=== PATIENT | female | born 1990 | race Caucasian/White ===

== ENCOUNTER 2017-06-02 16:40 | Emergency (ER) | payer OTHER ==
[2017-06-02 16:48] VITALS: BP 134/90; PULSE 99; TEMP 97.4; BMI 25.4
--- NOTE | 2017-06-02 16:50 | PDOC ---
Rapid Medical Evaluation Chief Complaint: Pain Time Seen by Provider: 06/02/17 16:46 Medical Evaluation: Allergies Allergy/AdvReac Type Severity Reaction Status Date / Time No Known Allergies Allergy Verified 09/17/16 09:33 06/02/17 17:00 I have performed a brief in-person evaluation of this patient. The patient presents with a chief complaint of: leg pain, ?dyspnea, hx lupus Pertinent physical exam findings: leg pain, no gross swelling. ambulatory. appears well, no obvious dyspnea I have ordered the following: cbc, cmp, coags, us right leg, The patient will proceed to the ED for further evaluation. Discharge Disposition - Diagnosis Leg pain Qualifiers: Laterality: right Qualified Code(s): M79.604 - Pain in right leg - Referrals - Patient Instructions - Post Discharge Activity
[2017-06-02 17:24] LABS: BASOPHIL 0.6 % (0-2.0); EOSINOPHIL 1.2 % (0-4.5); MCH 30.9 pg (25.7-33.7); MCHC 34.6 g/dl (32.0-36.0); MEAN CELL VOLUME 89.3 fl (80-96); MEAN PLT VOLUME 10.2 fl (7.5-11.1); NEUTROPHILS 67.8 % (42.8-82.8); PLATELET COUNT 172 K/MM3 (134-434); RDW 12.7 % (11.6-15.6)
--- NOTE | 2017-06-02 17:42 | PDOC ---
History of Present Illness - General Chief Complaint: Pain Stated Complaint: LEG PAIN Time Seen by Provider: 06/02/17 16:46 History Source: Patient - History of Present Illness Occurred: reports: other Lower Extremity Pain Location: right: knee Past History - Past Medical History Allergies/Adverse Reactions: Allergies Allergy/AdvReac Type Severity Reaction Status Date / Time No Known Allergies Allergy Verified 06/02/17 16:48 Home Medications: Ambulatory Orders NK [No Known Home Medication] 06/02/17 Asthma: Yes (last attack 2 yrs ago) Cancer: No Cardiac Disorders: No COPD: No Diabetes: No HTN: No Seizures: No Thyroid Disease: No Other medical history: lupus - Reproductive History (#): 4 Para: 3 Therapeutic (s) & number: No Spontaneous : 0 - Suicide/Smoking/Psychosocial Hx Smoking Status: No Smoking History: Never smoked Have you smoked in the past 12 months: No Number of Cigarettes Smoked Daily: 0 Hx Alcohol Use: No Drug/Substance Use Hx: No Hx Substance Use Treatment: No Review of Systems - Review of Systems Constitutional: No: Chills, Fever Cardiac (ROS): No: Chest Pain, Palpitations Musculoskeletal: Yes: Joint Pain. No: Joint Swelling *Physical Exam - Vital Signs Last Vital Signs Temp Pulse Resp BP Pulse Ox 97.4 F L 99 H 18 134/90 99 06/02/17 16:44 06/02/17 16:44 06/02/17 16:44 06/02/17 16:44 06/02/17 16:44 - Physical Exam General Appearance: Yes: Appropriately Dressed. No: Apparent Distress HEENT: positive: Normal Voice Neck: positive: Supple Respiratory/Chest: positive: Lungs Clear, Normal Breath Sounds. negative: Respiratory Distress Cardiovascular: positive: Regular Rate, S1, S2 Extremity: positive: Normal Inspection. negative: Tender, Swelling Integumentary: positive: Dry, Warm Neurologic: positive: Fully Oriented, Alert, Normal Mood/Affect ED Treatment Course - LABORATORY CBC & Chemistry Diagram: 06/02/17 17:30 06/02/17 17:30 - ADDITIONAL ORDERS Additional order review: Laboratory Results 06/02/17 17:30 Urine HCG, Qual Negative 06/02/17 17:30 RBC 4.90 D MCV 89.3 MCHC 34.6 RDW 12.7 D MPV 10.2 Neutrophils % 67.8 Lymphocytes % 24.1 D Monocytes % 6.3 Eosinophils % 1.2 D Basophils % 0.6 Medical Decision Making - Medical Decision Making 06/02/17 17:41 27 yo F, h/o lupus, here w/ R knee pain x 1 week. States pain radiates to leg when she walks. No calf pain, cp, sob or palpitations. No trauma. Has not taken anything for pain. Pt well tatyana w/ unremarkable exam. M/l MSK. Labs and US sent from triage by [facility] provider and all negative. Pt declines pain meds in ED. Dc w / OTC meds and PMD f/u as needed *DC/Admit/Observation/Transfer Diagnosis at time of Disposition: Knee pain, right Qualifiers: Chronicity: acute Qualified Code(s): M25.561 - Pain in right knee - Discharge Dispostion Disposition: HOME Condition at time of disposition: Good - Referrals Referrals: Linda Sánchez MD [Primary Care Provider] - - Patient Instructions Printed Discharge Instructions: DI for Knee Pain Additional Instructions: The cause of your pain is most likely muscular. Take motrin as needed and follow up with your PMD - Post Discharge Activity
[2017-06-02] MEDS ORDERED: IBUPROFEN 400 MG TABLET (FP) PO ONE (17:43)
[2017-06-02 17:44] LABS: ALBUMIN 4.4 g/dl (3.4-5.0); ALK PHOS 81 U/L (45-117); ANION GAP 7 (8-16); BILIRUBIN,TOTAL 0.3 mg/dL (0.2-1.0); CALCIUM 8.6 mg/dL (8.5-10.1); CO2 26 mmol/L (21-32); CREATININE 0.9 mg/dL (0.55-1.02); GLUCOSE,RANDOM 79 mg/dL (74-106); SGOT/AST 10 U/L (15-37); SGPT/ALT 31 U/L (12-78)
--- NOTE | 2017-06-02 18:17 | PDOC ---
*Physical Exam - Vital Signs Last Vital Signs Temp Pulse Resp BP Pulse Ox 97.4 F L 99 H 18 134/90 99 06/02/17 16:44 06/02/17 16:44 06/02/17 16:44 06/02/17 16:44 06/02/17 16:44 ED Treatment Course - LABORATORY CBC & Chemistry Diagram: 06/02/17 17:30 06/02/17 17:30 - ADDITIONAL ORDERS Additional order review: Laboratory Results 06/02/17 06/02/17 06/02/17 17:30 17:30 17:30 Sodium 140 Potassium 3.8 Chloride 107 Carbon Dioxide 26 Anion Gap 7 L BUN 10 D Creatinine 0.9 D Creat Clearance w eGFR > 60 Random Glucose 79 Calcium 8.6 Total Bilirubin 0.3 D AST 10 L ALT 31 D Alkaline Phosphatase 81 Total Protein 8.0 D Albumin 4.4 D Serum , Qual Negative Urine HCG, Qual Negative 06/02/17 17:30 RBC 4.90 D MCV 89.3 MCHC 34.6 RDW 12.7 D MPV 10.2 Neutrophils % 67.8 Lymphocytes % 24.1 D Monocytes % 6.3 Eosinophils % 1.2 D Basophils % 0.6 *DC/Admit/Observation/Transfer Diagnosis at time of Disposition: Knee pain, right Qualifiers: Chronicity: acute Qualified Code(s): M25.561 - Pain in right knee - Discharge Dispostion Disposition: HOME Condition at time of disposition: Good - Referrals Referrals: Linda Sánchez MD [Primary Care Provider] - - Patient Instructions Printed Discharge Instructions: DI for Knee Pain Additional Instructions: The cause of your pain is most likely muscular. Take motrin as needed and follow up with your PMD - Post Discharge Activity Forms/Work/School Notes: Back to Work
[2017-06-02 18:56] LABS: INR 1.01 (0.82-1.09); PROTHROMBIN TIME (PATIENT) 11.4 SEC (9.98-11.88)
[2017-06-02 18:59] LABS: ACTIVATED PTT 29.1 SECONDS (26.9-34.4)
== END 2017-06-02 18:45 | disposition home or self-care (01) ==
LOC: JER 16:40
DX: M79.604 Pain in right leg (principal); J45.909 Unspecified asthma, uncomplicated; M32.9 Systemic lupus erythematosus, unspecified
CPT/HCPCS: 36415; 80053; 84703; 85025; 85610; 85730; 93971-TC; 99283-25

== ENCOUNTER 2021-08-21 19:22 | Emergency (ER) | payer OTHER ==
[2021-08-21 19:38] VITALS: TEMP 98.8; BMI 27.5
[2021-08-21] MEDS ORDERED: METOCLOPRAMIDE HCL INJECTION 10 MG/2 ML VIAL IVPB ONE (20:29)
[2021-08-21] MEDS ORDERED: ACETAMINOPHEN 1000 MG/100 ML BAG IVPB ONE (20:29)
[2021-08-21] MEDS ORDERED: SODIUM CHLORIDE 1,000 ML IV STA (20:29)
[2021-08-21] MEDS ORDERED: METOCLOPRAMIDE HCL INJECTION 10 MG/2 ML VIAL ONE (20:42)
[2021-08-21] MEDS ORDERED: ACETAMINOPHEN INJECTION 100 ML IVPB ONE (20:42)
[2021-08-21 21:21] LABS: BASO % 0.5 % (0-2.0); EOS % 0.9 % (0-4.5); HEMATOCRIT 36.1 % (32.4-45.2); HEMOGLOBIN 12.3 GM/dL (10.7-15.3); LYMPH % 16.6 % (8-40); MCH 30.3 pg (25.7-33.7); MCHC 34.2 g/dl (32.0-36.0); MEAN CELL VOLUME 88.6 fl (80-96); MEAN PLT VOLUME 9.7 fl (7.5-11.1); MONO % 6.5 % (3.8-10.2); NEUT % 75.5 % (42.8-82.8); PLATELET COUNT 161 10^3/uL (134-434); RBC 4.07 M/mm3 (3.60-5.2); RDW 12.9 % (11.6-15.6); WHITE BLOOD COUNT 7.3 K/mm3 (4.0-10.0)
[2021-08-21 21:42] LABS: ALBUMIN 3.1 g/dl (3.4-5.0); CALCIUM 8.8 mg/dL (8.5-10.1)
[2021-08-21 21:43] LABS: BLOOD UREA NITROGEN 8.5 mg/dL (7-18)
[2021-08-21 21:45] LABS: CREATININE 0.6 mg/dL (0.55-1.3)
[2021-08-21 21:47] LABS: BILIRUBIN,TOTAL 0.2 mg/dL (0.2-1); TOT PROT 6.4 g/dl (6.4-8.2)
[2021-08-21 22:35] LABS: URINE APPEARANCE CLOUDY; URINE BILIRUBIN NEGATIVE (NEGATIVE); URINE COLOR YELLOW; URINE GLUCOSE (UA) NEGATIVE (NEGATIVE); URINE KETONE TRACE (NEGATIVE); URINE LEUK ESTERASE NEGATIVE (NEGATIVE); URINE NITRITE NEGATIVE (NEGATIVE); URINE PROTEIN NEGATIVE (NEGATIVE)
[2021-08-22 00:42] VITALS: BP 112/69; PULSE 90
== END 2021-08-22 01:07 | disposition home or self-care (01) ==
LOC: JER 19:22
PROC: 3E033NZ Introduction of Analgesics, Hypnotics, Sedatives into Peripheral Vein, Percutaneous Approach (ICD-10-PCS; principal; 2021-08-21)
PROC: 3E033GC Introduction of Other Therapeutic Substance into Peripheral Vein, Percutaneous Approach (ICD-10-PCS; 2021-08-21)
PROC: 3E0337Z Introduction of Electrolytic and Water Balance Substance into Peripheral Vein, Percutaneous Approach (ICD-10-PCS; 2021-08-21)
DX: O26.891 Other specified pregnancy related conditions, first trimester (principal); R10.9 Unspecified abdominal pain; Z3A.11 11 weeks gestation of pregnancy
CPT/HCPCS: 36415; 76775-TC; 76801-TC; 76856-TC; 80053; 81003; 84702; 85025; 87086; 96365; 96374; 96375; 99284-25; J0131

== ENCOUNTER 2022-03-07 11:45 | Inpatient (IN) | payer OTHER ==
[2022-03-07] MEDS ORDERED: DINOPROSTONE 10 MG VAGINAL SUPPOSITORY VG ONE (12:55)
[2022-03-07] MEDS: ELECTROLYTE-148 SOLN 1,000 ML IV SCH (13:00)
[2022-03-07 13:23] VITALS: BMI 34.0
[2022-03-07] MEDS ORDERED: BUTORPHANOL TARTRATE 1 MG/ML VIAL IVPB ONE (14:17)
[2022-03-07] MEDS ORDERED: PROMETHAZINE HCL 25 MG/1 ML VIAL IVPUSH ONE (14:17)
[2022-03-07 15:08] LABS: BASO % 0.2 % (0-2.0); EOS % 0.5 % (0-4.5); HEMATOCRIT 34.2 % (32.4-45.2); HEMOGLOBIN 11.4 GM/dL (10.7-15.3); LYMPH % 14.2 % (8-40); MCH 27.5 pg (25.7-33.7); MCHC 33.4 g/dl (32.0-36.0); MEAN CELL VOLUME 82.3 fl (80-96); MEAN PLT VOLUME 9.6 fl (7.5-11.1); MONO % 8.2 % (3.8-10.2); NEUT % 76.9 % (42.8-82.8); PLATELET COUNT 101 10^3/uL (134-434); RBC 4.16 M/mm3 (3.60-5.2); WHITE BLOOD COUNT 9.7 K/mm3 (4.0-10.0)
[2022-03-07 15:14] LABS: INR 0.95 (0.83-1.09); PROTHROMBIN TIME (PATIENT) 10.9 SEC (9.7-13.0)
[2022-03-07 15:25] LABS: CALCIUM 8.6 mg/dL (8.5-10.1)
[2022-03-07 15:26] LABS: BLOOD UREA NITROGEN 8.1 mg/dL (7-18)
[2022-03-07 15:29] LABS: CREATININE 0.6 mg/dL (0.55-1.3)
[2022-03-07 16:20] LABS: PH,URINE 6.5 (5.0-8.0); URINE APPEARANCE CLEAR; URINE BILIRUBIN NEGATIVE (NEGATIVE); URINE COLOR YELLOW; URINE GLUCOSE (UA) 2+ (NEGATIVE); URINE KETONE NEGATIVE (NEGATIVE); URINE LEUK ESTERASE NEGATIVE (NEGATIVE); URINE NITRITE NEGATIVE (NEGATIVE); URINE PROTEIN TRACE (NEGATIVE)
[2022-03-07] MEDS ORDERED: FENTANYL/BUPIVACAINE/NS/PF - PCEA - 50 ML DISP.SYRIN EP ONE (22:49)
[2022-03-07] MEDS: FENTANYL/BUPIVACAINE/NS/PF - PCEA - 50 ML DISP.SYRIN EP SCH (23:05)
[2022-03-07] MEDS ORDERED: NALOXONE HCL 0.4 MG/ML VIAL IVPUSH PRN (23:19)
[2022-03-08] MEDS ORDERED: TERBUTALINE SULFATE 1 MG/1 ML VIAL SQ ONE (02:32)
[2022-03-08] MEDS: ELECTROLYTE-148 SOLN 1,000 ML IV SCH (02:40)
[2022-03-08] MEDS ORDERED: OXYTOCIN 20 UNITS in 0.9% NS 20 UNIT/1,000 ML INFUS.BAG IV ONE (03:16)
[2022-03-08] MEDS ORDERED: FENTANYL/BUPIVACAINE/NS/PF - PCEA - 50 ML DISP.SYRIN EP ONE (03:21)
[2022-03-08] MEDS ORDERED: BUPIVACAINE HCL/PF 0.25% (2.5MG/ML) 10 ML VIAL ONE (03:30)
[2022-03-08] MEDS ORDERED: ACETAMINOPHEN 325 MG TABLET (FP) PO PRN (04:20)
[2022-03-08] MEDS ORDERED: BENZOCAINE 20% 57 GM BOTTLE TP PRN (04:20)
[2022-03-08] MEDS ORDERED: WITCH HAZEL 50% (TUCKS) 40 PAD/JAR PAD TP PRN (04:20)
[2022-03-08] MEDS ORDERED: BENZOCAINE 28 GM HEMORRHOIDAL OINTMENT TP PRN (04:20)
[2022-03-08] MEDS ORDERED: BISACODYL 10 MG SUPP.RECT RC PRN (04:20)
[2022-03-08] MEDS ORDERED: METHYLERGONOVINE MALEATE 0.2 MG/1 ML AMP IM PRN (04:20)
[2022-03-08] MEDS ORDERED: METHYLERGONOVINE MALEATE 0.2 MG/1 ML AMP IM ONE (04:23)
[2022-03-08] MEDS ORDERED: OXYTOCIN 20 UNITS in 0.9% NS 20 UNIT/1,000 ML INFUS.BAG IV SCH (04:30)
[2022-03-08 04:56] LABS: CORD BASE EXCESS -8.3 mmol/L (0-2); CORD HCO3 21.3 mmHg (20-29); CORD PCO2 59.6 mmHg (30-78); CORD pH 7.171 (7.14-7.44)
[2022-03-08 04:58] LABS: CORD HCO3 16.7 mmHg (20-29); CORD PCO2 39.9 mmHg (30-78); CORD pH 7.24 (7.14-7.44)
[2022-03-08] MEDS: OXYTOCIN 20 UNITS in 0.9% NS 20 UNIT/1,000 ML INFUS.BAG IV SCH (05:30)
[2022-03-08] MEDS: oxyCODONE HCL 5 MG TABLET PO PRN ×3 (06:16→22:55)
[2022-03-08 08:07] LABS: BASO % 0.2 % (0-2.0); HEMATOCRIT 32.1 % (32.4-45.2); HEMOGLOBIN 10.5 GM/dL (10.7-15.3); LYMPH % 5.9 % (8-40); MCHC 32.7 g/dl (32.0-36.0); MEAN CELL VOLUME 82.6 fl (80-96); MEAN PLT VOLUME 9.3 fl (7.5-11.1); MONO % 5.3 % (3.8-10.2); NEUT % 88.6 % (42.8-82.8); PLATELET COUNT 91 10^3/uL (134-434); RBC 3.89 M/mm3 (3.60-5.2); RDW 15.2 % (11.6-15.6); WHITE BLOOD COUNT 14.9 K/mm3 (4.0-10.0)
[2022-03-08] MEDS: ACETAMINOPHEN 325 MG TABLET (FP) PO PRN (10:44)
[2022-03-09] MEDS: oxyCODONE HCL 5 MG TABLET PO PRN (08:25)
[2022-03-09 09:45] LABS: BASO % 0.5 % (0-2.0); EOS % 0.8 % (0-4.5); HEMATOCRIT 31.2 % (32.4-45.2); HEMOGLOBIN 10.4 GM/dL (10.7-15.3); LYMPH % 19.8 % (8-40); MCH 27.8 pg (25.7-33.7); MCHC 33.3 g/dl (32.0-36.0); MEAN CELL VOLUME 83.2 fl (80-96); MEAN PLT VOLUME 9.2 fl (7.5-11.1); MONO % 6.9 % (3.8-10.2); PLATELET COUNT 110 10^3/uL (134-434); RBC 3.75 M/mm3 (3.60-5.2); RDW 15.2 % (11.6-15.6); WHITE BLOOD COUNT 11.1 K/mm3 (4.0-10.0)
[2022-03-09] MEDS: ACETAMINOPHEN 325 MG TABLET (FP) PO PRN ×2 (11:05→17:41)
[2022-03-09] MEDS: ELECTROLYTE-148 SOLN 1,000 ML IV SCH ×4 (18:53→18:54)
[2022-03-09] MEDS: FENTANYL/BUPIVACAINE/NS/PF - PCEA - 50 ML DISP.SYRIN EP SCH (18:53)
[2022-03-09] MEDS: OXYTOCIN 20 UNITS in 0.9% NS 20 UNIT/1,000 ML INFUS.BAG IV SCH (18:53)
[2022-03-09] MEDS ORDERED: SENNOSIDES/DOCUSATE COMBO (SENNA PLUS) TABLET (UD) PO PRN (22:00)
[2022-03-09 22:06] VITALS: BP 120/80
[2022-03-10] MEDS: oxyCODONE HCL 5 MG TABLET PO PRN (08:23)
[2022-03-10 08:58] VITALS: PULSE 82; RESP 17; TEMP 98.5
== END 2022-03-10 11:10 | disposition home or self-care (01) | DRG 560 ==
LOC: JLDR 11:45 → J3W 03-08 05:37
PROVIDERS: ADMIT Obstetrics & Gynecology; ATTEND Obstetrics & Gynecology
PROC: 3E0P7VZ Introduction of Hormone into Female Reproductive, Via Natural or Artificial Opening (ICD-10-PCS; 2022-03-07)
PROC: 10E0XZZ Delivery of Products of Conception, External Approach (ICD-10-PCS; principal; 2022-03-08)
DX: O40.3XX0 Polyhydramnios, third trimester, not applicable or unspecified (principal); M32.9 Systemic lupus erythematosus, unspecified; O99.12 Other diseases of the blood and blood-forming organs and certain disorders involving the immune mechanism complicating childbirth; Z3A.39 39 weeks gestation of pregnancy; Z37.0 Single live birth
CPT/HCPCS: 36415; 36600; 59409; 80048; 81003; 82803; 85025; 85610; 85730; 86780; 86850; 86900; 86901; C9803-CS; U0003; U0005

== ENCOUNTER 2025-02-17 12:41 | Emergency (ER) | payer OTHER ==
[2025-02-17 12:52] VITALS: BP 169/98; PULSE 88; RESP 20; TEMP 98.1; BMI 24.3
[2025-02-17] MEDS ORDERED: ACETAMINOPHEN WITH CODEINE 300MG/30MG TABLET ONE (13:32)
[2025-02-17] MEDS: ACETAMINOPHEN WITH CODEINE 300MG/30MG TABLET PO ONE (13:40)
[2025-02-17] MEDS ORDERED: MAG HYDROX/ALH/SMC/DPHA/LIDO 240 ML MOUTHWASH MM SCH (18:00)
== END 2025-02-17 15:07 | disposition home or self-care (01) ==
LOC: JERFT 12:41
DX: K03.81 Cracked tooth (principal); K02.9 Dental caries, unspecified
CPT/HCPCS: 99283-25